=== PATIENT | male | born 1970 | race African-American/Black ===

== ENCOUNTER 2017-07-01 19:41 | Inpatient (IN) | payer OTHER ==
[~2017-07-01] VITALS: Ht 182.9 cm; Wt 74.8 kg
--- NOTE | ~2017-07-01 | O ---
[facility] [place] [address] OPERATIVE REPORT Name: RONNY GARCIA Room #: [facility] IN M.R.#: [id number] Admission: 07/01/17 Attend Phys: Chavo Harris MD Discharge: 07/03/17 Date of : 72 Report #: [id number] THIS REPORT FOR: //name// CC: Chavo Harris [facility] physician/PCP DATE OF SERVICE: 07/03/2017 OR is #4. SURGEON: Vinay Perez MD TEMPERER: None. PREOPERATIVE DIAGNOSIS: Symptomatic right ureteral calculus. POSTOPERATIVE DIAGNOSIS: Symptomatic right ureteral calculus. PROCEDURE: Cystoscopy, right ureteroscopy with balloon dilation of the ureter, basket stone extraction and stent placement. COMPLICATIONS: None. ANESTHETIC: General. ESTIMATED BLOOD LOSS: None. DESCRIPTION OF PROCEDURE: The patient taken to the operating room and general anesthesia was induced. The patient was prepped and draped in the usual sterile fashion in the dorsal lithotomy position. The meatus was entered with the rigid cystoscope. The anterior urethra was normal. The sphincter was normal. The prostatic urethra was entered and showed no evidence of obstruction. I then entered into the bladder. The bladder mucosa was systematically examined and was normal. The ureteral orifices appeared orthotopic bilaterally. I then cannulated the right ureteral orifice with 0.035 sensor wire. This advanced past the stone and up into the kidney. I then balloon dilated the ureteral orifice with an 18-Japanese x 4 cm UroMax balloon as it was too small to accommodate the ureteroscope. I then performed semirigid ureteroscopy. The stone was seen in the distal ureter. It was basketed and removed with an escape basket. The ureter was then examined and there was no evidence of any other stones. I then removed the ureteroscope. The cystoscope was then placed into the bladder. A 6 x 30 double-J stent was advanced over the wire. The dangle was left intact and the stent was deployed. Excellent curl was seen proximally and distally. The cystoscope was withdrawn. The patient tolerated the procedure well. He was transferred to recovery in satisfactory condition. There were no immediate complications. He will follow up with us on Thursday to [address] [address] OPERATIVE REPORT Name: RONNY GARCIA Room #: 441-P [facility] IN M.R.#: [id number] Admission: 07/01/17 Attend Phys: Chavo Harris MD Discharge: 07/03/17 Date of : 72 Report #: [id number] have his stent removed. He understands the importance of removing the stent on Thursday. By: [id number] Vinay Perez MD /nt
--- NOTE | ~2017-07-01 | EKG ---
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
[2017-07-01 19:43] VITALS: BP 112/66
[2017-07-01 20:22] LABS: ABSOLUTE NEUTROPHILS 3.7 thou/uL (1.4-8.2); BASOPHILS 0.5 % (0.0-2.0); HEMATOCRIT 39.6 % (42.0-52.0); HEMOGLOBIN 13.4 gm/dL (14.0-18.0); LYMPHOCYTES 40.4 % (24.0-44.0); MCH 32.5 pg (26.0-34.0); MCHC 33.8 g/dL (28.0-37.0); MCV 96.3 fL (80.0-100.0); MONOCYTES 9.9 % (1.0-8.0); PLATELET COUNT 188 thou/uL (150-400); POLYS 47.2 % (36.0-66.0); RBC 4.11 mil/uL (4.50-6.00); RDW 14.1 % (10.5-14.5); WBC 7.8 thou/uL (4.0-11.0)
[2017-07-01 20:23] LABS: MANUAL DIFF NO
[2017-07-01 20:40] LABS: ANION GAP 7 mmol/L (7-16); BUN 13 mg/dL (7-18); CALCIUM 8.6 mg/dL (8.5-10.1); CHLORIDE 105 mmol/L (98-107); CO2 27 mmol/L (21-32); CREATININE 1.2 mg/dL (0.7-1.3); GLUCOSE 104 mg/dL (74-106); POTASSIUM 4.6 mmol/L (3.5-5.1); SODIUM 139 mmol/L (136-145)
[2017-07-01 20:48] LABS: ALBUMIN 3.6 g/dL (3.4-5.0); ALKALINE PHOSPHATASE 76 U/L (46-116); DIRECT BILIRUBIN < 0.1 mg/dL (<0.1-0.3); SGOT 33 U/L (15-37); SGPT 19 U/L (30-65); TOTAL BILIRUBIN 0.6 mg/dL (<0.1-1.0); TOTAL PROTEIN 7.2 g/dL (6.4-8.2); TROPONIN-I < 0.04 ng/mL (<0.04-0.07)
[2017-07-01 22:16] LABS: URINE BILIRUBIN NEGATIVE (Negative); URINE BLOOD NEGATIVE (Negative); URINE COLOR YELLOW; URINE GLUCOSE-RANDOM* NEGATIVE (Negative); URINE KETONES NEGATIVE (Negative); URINE LEUKOCYTES-REFLEX NEGATIVE (Negative); URINE PROTEIN (DIPSTICK) NEGATIVE (Negative); URINE SPECIFIC GRAVITY >= 1.030 (1.003-1.035); URINE UROBILINOGEN 0.2 E.U./dl (0.2-1.0)
[2017-07-01] MEDS ORDERED: HYDROCODONE-AP1 EAC6 PO (22:50)
[2017-07-01] MEDS ORDERED: ZOFRAN ODT4 M1 PO (22:50)
[2017-07-01] MEDS ORDERED: FLOMAX0.4 MG PO (22:50)
[2017-07-01] MEDS ORDERED: IBUPROFEN 600600 M1 PO (22:52)
[2017-07-01 23:49] VITALS: BP 118/74
[2017-07-02] VITALS: BP 116/70
[2017-07-02 04:07] VITALS: BP 112/64
[2017-07-02 06:35] LABS: HEMATOCRIT 35.3 % (42.0-52.0); HEMOGLOBIN 12.2 gm/dL (14.0-18.0); MCH 33.3 pg (26.0-34.0); MCHC 34.6 g/dL (28.0-37.0); RBC 3.67 mil/uL (4.50-6.00); RDW 13.7 % (10.5-14.5); WBC 10.9 thou/uL (4.0-11.0)
[2017-07-02 06:46] LABS: CALCIUM 8.1 mg/dL (8.5-10.1); CREATININE 1.6 mg/dL (0.7-1.3); POTASSIUM 4.2 mmol/L (3.5-5.1)
[2017-07-02 08:30] VITALS: BP 113/64
[2017-07-02 16:10] VITALS: BP 94/63
[2017-07-02 20:20] VITALS: BP 122/65
[2017-07-03 04:00] VITALS: BP 119/71
[2017-07-03 07:06] VITALS: BP 122/69
[2017-07-03 09:54] VITALS: BP 142/76
[2017-07-03] MEDS ORDERED: FLOMAX0.4 MG PO (10:17)
[2017-07-03] MEDS ORDERED: ONDANSETRON HCL4 M2 PO (10:17)
[2017-07-03] MEDS ORDERED: OXYCODONE HCL 55 MG PO (10:17)
[2017-07-03 12:52] VITALS: BP 142/76
[2017-07-03 14:08] VITALS: BP 142/76
== END 2017-07-03 14:19 | disposition home or self-care (01) | DRG 669 ==
LOC: ER 19:41 → EROBS 23:10 → 4S 23:10 → ENTRNSPT 07-03 14:01 → EDTRNSPTSTS 07-03 14:03 → 4S 07-03 14:19
PROVIDERS: Nurse Practitioner Family; Physician Assistant
PROC: 0T768DZ Dilation of Right Ureter with Intraluminal Device, Via Natural or Artificial Opening Endoscopic (ICD-10-PCS; principal; 2017-07-03)
PROC: 0TC68ZZ Extirpation of Matter from Right Ureter, Via Natural or Artificial Opening Endoscopic (ICD-10-PCS; principal; 2017-07-03)
DX: N13.2 Hydronephrosis with renal and ureteral calculous obstruction (principal); Z79.899 Other long term (current) drug therapy
CPT/HCPCS: 10195; 50010; 50101